=== PATIENT | female | born 1960 | race Caucasian/White ===

== ENCOUNTER → 2017-06-24 | Outpatient (CLI) | payer OTHER ==
[~2017-06-24] MED LIST: ALPR0.25 PO; ANTIBIOTIC; DULO30CA2 PO; FENT1PAT77 TD; FENTANYL PF 100 MCG/2ML ONE; FLUC200T PO; GABA300C PO; GADOBUTROL 10 MMOL/10 ML PFS ONE; LISI5TAB7 PO; MIDAZOLAM 1 MG/ML, 5ML ONE; OXYC-306 PO; PRAV40TA2 PO; QUET50TA5 PO
== END | disposition home or self-care (01) ==
LOC: RAD 09:02
PROVIDERS: ATTEND Physician Assistant
DX: M48.02 Spinal stenosis, cervical region (principal); M47.892 Other spondylosis, cervical region; M50.30 Other cervical disc degeneration, unspecified cervical region; M50.21 Other cervical disc displacement, high cervical region; M50.23 Other cervical disc displacement, cervicothoracic region; M50.223 Other cervical disc displacement at C6-C7 level; M25.78 Osteophyte, vertebrae; Z98.1 Arthrodesis status
CPT/HCPCS: 72156; 99156; 99157; A9585; J2250; J3010

== ENCOUNTER → 2018-06-12 | Outpatient (CLI) | payer OTHER ==
[~2018-06-12] MED LIST changes: +ALPR-475 PO; +AMLO2.5T3 PO; +DULO60CA7 PO; -FENTANYL PF 100 MCG/2ML ONE; +GABA300C10 PO; -GADOBUTROL 10 MMOL/10 ML PFS ONE; -MIDAZOLAM 1 MG/ML, 5ML ONE; +OXYC-302 PO; +lovastatin PO
[2018-06-12 09:40] LABS: BASOPHILS # (AUTO) 0.02 x10^3/uL (0-0.1); BASOPHILS % (AUTO) 0 % (0-1); EOSINOPHILS % (AUTO) 4 % (1-7); LYMPHOCYTES # (AUTO) 2.17 x10^3/uL (1-3.4); LYMPHOCYTES % (AUTO) 28 % (22-44); MD NO; MEAN CORPUSCULAR HEMOGLOBIN 29.4 pg (27.0-34.8); MEAN CORPUSCULAR HGB CONC 33.5 g/dL (32.4-35.8); MEAN CORPUSCULAR VOLUME 87.9 fL (80-100); MEAN PLATELET VOLUME 8.1 fL (7.4-10.4); MONOCYTES % (AUTO) 9 % (2-9); NEUTROPHILS # (AUTO) 4.54 x10^3/uL (1.8-6.8); NEUTROPHILS % (AUTO) 59 % (42-75); PLATELET COUNT 296 x10^3/uL (130-400); RED BLOOD COUNT 4.88 x10^6/uL (3.82-5.3); RED CELL DISTRIBUTION WIDTH 15.7 % (9.6-15.2)
[2018-06-12 09:50] LABS: ALANINE AMINOTRANSFERASE 54 U/L (12-78); ALBUMIN 3.7 g/dL (3.4-5.0); ANION GAP 8 mmol/L (5-15); CALCIUM 8.6 mg/dL (8.5-10.1); CHLORIDE 110 mmol/L (98-107); CREATININE 0.85 mg/dL (0.55-1.02)
[2018-06-12 09:53] LABS: ALKALINE PHOSPHATASE 137 U/L (45-117); BILIRUBIN,TOTAL 0.2 mg/dL (0.2-1.0); TOTAL PROTEIN 7.4 g/dL (6.4-8.2)
[2018-06-12 10:01] LABS: INTERNATIONAL NORMALIZED RATIO 0.91 (0.93-1.1); PROTHROMBIN TIME 9.5 Seconds (9.6-11.5)
== END | disposition home or self-care (01) ==
LOC: STAR 08:17
PROVIDERS: ATTEND Neurological Surgery
DX: Z01.818 Encounter for other preprocedural examination (principal); I44.5 Left posterior fascicular block; I21.9 Acute myocardial infarction, unspecified; M43.02 Spondylolysis, cervical region; Z88.0 Allergy status to penicillin; Z88.2 Allergy status to sulfonamides; Z87.891 Personal history of nicotine dependence
CPT/HCPCS: 36415; 80053; 85025; 85610; 85730; 93005